=== PATIENT | female | born 1985 | race Caucasian/White ===

== ENCOUNTER 2017-01-26 23:47 | Inpatient (IN) | payer BC, OTHER ==
[2017-01-27] MEDS ORDERED: Sodium Chloride 0.9% 10 ML Syringe FLUSH PRN (00:44)
[2017-01-27] MEDS ORDERED: fentaNYL 100 MCG/2 ML SDV ONE (00:57)
[2017-01-27] MEDS ORDERED: ePHEDrine 50 MG/ML SDV IVPUSH PRN (01:20)
[2017-01-27] MEDS ORDERED: diphenhydrAMINE 50 MG/ML SDV IVPUSH PRN (01:20)
[2017-01-27] MEDS ORDERED: Ondansetron 4 MG/2 ML SDV IVPUSH PRN (01:20)
[2017-01-27] MEDS ORDERED: fentaNYL 100 MCG/2 ML SDV EPIDUR PRN (01:20)
[2017-01-27] MEDS: Lactated Ringers 1,000 ML IV SCH ×4 (02:00→12:20)
[2017-01-27] MEDS: Bupivacaine/fentaNYL/NS 100 ML Bag EPIDUR SCH ×3 (02:00→17:38)
--- NOTE | 2017-01-27 02:11 | PCM.PREANE ---
Preanesthetic Assessment - Anesthesia/Transfusion/Family Hx Anesthesia History: Prior Anesthesia Without Reaction Family History of Anesthesia Reaction: No Transfusion History: No Prior Transfusion(s) - Review of Systems General: No Symptoms Pulmonary: No Symptoms Cardiovascular: No Symptoms Gastrointestinal: Other (Heart burn with ) Neurological: No Symptoms Other: Reports: None - Physical Assessment Pulse: 96 O2 Sat by Pulse Oximetry: 99 Respiratory Rate: 20 Blood Pressure: 119/75 Temperature: 36.8 C Vital Signs: Last Vital Signs Temp Pulse Resp BP 119/75 01/27/17 00:26 Pulse Ox Height: 1.57 m Weight: 73.573 kg ASA Class: 2 Mental Status: Alert & Oriented x3 Airway Class: Mallampati = 2 Dentition: Reports: Normal Dentition Thyro-Mental Finger Breadths: 3 Mouth Opening Finger Breadths: 3 ROM/Head Extension: Full Lungs: Clear to Auscultation, Normal Respiratory Effort Cardiovascular: Regular Rate, Regular Rhythm - Lab Values: Laboratory Last Values WBC 19.01 K/mm3 (3.98-10.04) H 01/27/17 00:22 RBC 4.02 M/mm3 (3.98-5.22) 01/27/17 00:22 Hgb 12.0 gm/L (11.2-15.7) 01/27/17 00:22 Hct 36.0 % (34.1-44.9) 01/27/17 00:22 MCV 89.6 fl (79.4-94.8) 01/27/17 00:22 MCH 29.9 pg (25.6-32.2) 01/27/17 00:22 MCHC 33.3 g/dl (32.2-35.5) 01/27/17 00:22 RDW Std Deviation 44.2 fL (36.4-46.3) 01/27/17 00:22 Plt Count 187 K/mm3 (182-369) 01/27/17 00:22 MPV 10.6 fl (9.4-12.3) 01/27/17 00:22 Neut % (Auto) 80.0 % (34.0-71.1) H 01/27/17 00:22 Lymph % (Auto) 11.7 % (19.3-51.7) L 01/27/17 00:22 [place] % (Auto) 7.3 % (4.7-12.5) 01/27/17 00:22 Eos % (Auto) 0.3 (0.7-5.8) L 01/27/17 00:22 Baso % (Auto) 0.2 % (0.1-1.2) 01/27/17 00:22 Neut # (Auto) 15.22 K/mm3 (1.56-6.13) H 01/27/17 00:22 Lymph # (Auto) 2.22 K/mm3 (1.18-3.74) 01/27/17 00:22 [place] # (Auto) 1.38 K/mm3 (0.24-0.36) H 01/27/17 00:22 Eos # (Auto) 0.06 K/mm3 (0.04-0.36) 01/27/17 00:22 Baso # (Auto) 0.03 K/mm3 (0.01-0.08) 01/27/17 00:22 - Allergies Allergies/Adverse Reactions: Allergies Allergy/AdvReac Type Severity Reaction Status Date / Time Penicillins Allergy Hives Verified 01/27/17 00:40 - Acknowledgements Anesthesia Type Planned: Epidural Pt an Appropriate Candidate for the Planned Anesthesia: Yes Alternatives and Risks of Anesthesia Discussed w Pt/Guardian: Yes Pt/Guardian Understands and Agrees with Anesthesia Plan: Yes PreAnesthesia Questionnaire [employer] History: Reports: Other (See Below) Other OB/BYN History: Previously on infertility medications. Current not from infertility meds - Past Surgical History HEENT Surgical History: Reports: Other (See Below) Other HEENT Surgeries/Procedures: [place] teeth removed - SUBSTANCE USE Smoking Status *Q: Never Smoker Tobacco Use Within Last Twelve Months: No Recreational Drug Use History: No - HOME MEDS Home Medications: Home Meds PNV95/Ferrous Fumarate/FA [ Tablet] 1 each PO DAILY 01/27/17 [History] - CURRENT (IN HOUSE) MEDS Current Meds: Current Medications Diphenhydramine HCl (Benadryl) 25 mg IVPUSH Q6H PRN PRN Reason: Pruritis Ephedrine Sulfate (Ephedrine Sulfate) 5 mg IVPUSH ASDIRECTED PRN PRN Reason: Hypotension Fentanyl (Sublimaze) 100 mcg EPIDUR ONETIME PRN PRN Reason: Pain Last Admin: 01/27/17 02:01 Dose: 100 mcg Fentanyl/Bupivacaine HCl (Fentanyl/Bupivacaine/Ns 2 Mcg-0.125% 100 Ml) 100 ml EPIDUR ASDIRECTED [facility] Last Admin: 01/27/17 02:00 Dose: 100 ml Lactated Ringer's (Ringers, Lactated) 1,000 mls @ 100 mls/hr IV ASDIRECTED [facility] Last Admin: 01/27/17 02:00 Dose: 100 mls/hr Ondansetron HCl (Zofran) 4 mg IVPUSH ONETIME PRN PRN Reason: Nausea/Vomiting Sodium Chloride (Saline Flush) 10 ml FLUSH ASDIRECTED PRN PRN Reason: Keep Vein Open Discontinued Medications Fentanyl (Sublimaze) Confirm Administered Dose 100 mcg .ROUTE .[facility] ONE Stop: 01/27/17 00:58 Last Admin: 01/27/17 02:02 Dose: Not Given
[2017-01-27] MEDS ORDERED: Diphtheria,Pertussis(Acell),Tetanus Vaccine 0.5 ML SDV IM ONE (03:45)
[2017-01-27] MEDS ORDERED: Bupivacaine 0.25% 10 ML SDV ONE (06:00)
[2017-01-27] MEDS ORDERED: Oxytocin/Lactated Ringers 10 UNIT/1,000 ML BAG IV SCH (12:15)
--- NOTE | 2017-01-27 18:29 | PCM.LDHP ---
L&D History of Present Illness - General Date of Service: 01/27/17 Admit Problem/Dx: Patient Status Order with Admit Dx/Problem 01/27/17 00:45 Patient Status [ADT] Routine Admission Diagnosis/Problem Admission Diagnosis/Problem Normal labor Source of Information: Patient History Limitations: Reports: No Limitations - History of Present Illness Introduction:: 31 year old at 39w6d by LMP and 8 week ultrasound presents with painful uterine contractions. Cervix 1.5 earlier in the day in clinic now 4 cm/100/-3. PNC with myself without complications. Pain Score: 10 - Related Data Allergies/Adverse Reactions: Allergies Allergy/AdvReac Type Severity Reaction Status Date / Time Penicillins Allergy Hives Verified 01/27/17 00:40 Home Medications: Home Meds PNV95/Ferrous Fumarate/FA [ Tablet] 1 each PO DAILY 01/27/17 [History] Past Medical History [employer] History: Reports: Other (See Below) Other OB/BYN History: Previously on infertility medications. Current not from infertility meds - Past Surgical History HEENT Surgical History: Reports: Other (See Below) Other HEENT Surgeries/Procedures: [place] teeth removed Social & Family History - Family History Family Medical History: Noncontributory - Tobacco Use Smoking Status *Q: Never Smoker - Recreational Drug Use Recreational Drug Use: No H&P Review of Systems - Review of Systems: Review Of Systems: See Below General: Reports: No Symptoms HEENT: Reports: No Symptoms Pulmonary: Reports: No Symptoms Cardiovascular: Reports: No Symptoms Gastrointestinal: Reports: No Symptoms Genitourinary: Reports: No Symptoms Musculoskeletal: Reports: No Symptoms Skin: Reports: No Symptoms Psychiatric: Reports: No Symptoms Neurological: Reports: No Symptoms Hematologic/Lymphatic: Reports: No Symptoms Immunologic: Reports: No Symptoms L&D Exam - Exam Exam: See Below - Vital Signs Vital Signs: Last Vital Signs Temp 36.8 C 01/27/17 02:11 Pulse 96 01/27/17 02:11 Resp 20 01/27/17 02:11 BP 119/75 01/27/17 02:11 Pulse Ox 99 01/27/17 02:11 Weight: 73.573 kg - OB Specific Contraction Intensity: Strong Movement: Active Heart Rate (FHR) Variability: Moderate (6-25 bmp) Presentation: Vertex Estimated Weight: 3400 - Low Score Low Score Cervix Position: Midposition Low Score Consistency: Soft Low Score Effacement: >80% Low Score Dilation: 3-4 cm Low Score Infant's Station: -2 Low Score Total: 9 - Exam General: Alert, Oriented HEENT: PERRLA, Conjunctiva Clear, EACs Clear, EOMI, Hearing Intact, Mucosa Moist & [place], Nares Patent, Normal Nasal Septum, Posterior Pharynx Clear, TMs Clear Neck: Supple, Trachea Midline Lungs: Clear to Auscultation, Normal Respiratory Effort Cardiovascular: Regular Rate, Regular Rhythm GI/Abdominal Exam: Normal Bowel Sounds, Soft, Non-Tender, No Organomegaly, No Distention, No Abnormal Bruit, No Mass, Pelvis Stable Genitourinary: Normal external exam, Normal bimanual exam, Normal speculum exam Back Exam: Normal Inspection, Full Range of Motion Extremities: Normal Inspection, Normal Range of Motion, Non-Tender, No Pedal Edema, Normal Capillary Refill Skin: Warm, Dry, Intact Neurological: Cranial Nerves Intact, Reflexes Equal Bilateral Psychiatric: Alert, Normal Affect, Normal Mood - Patient Data Lab Results Last 24 hrs: Laboratory Results - last 24 hr 01/27/17 Range/Units 00:22 WBC 19.01 H (3.98-10.04) K/mm3 RBC 4.02 (3.98-5.22) M/mm3 Hgb 12.0 (11.2-15.7) gm/L Hct 36.0 (34.1-44.9) % MCV 89.6 (79.4-94.8) fl MCH 29.9 (25.6-32.2) pg MCHC 33.3 (32.2-35.5) g/dl RDW Std Deviation 44.2 (36.4-46.3) fL Plt Count 187 (182-369) K/mm3 MPV 10.6 (9.4-12.3) fl Neut % (Auto) 80.0 H (34.0-71.1) % Lymph % (Auto) 11.7 L (19.3-51.7) % [place] % (Auto) 7.3 (4.7-12.5) % Eos % (Auto) 0.3 L (0.7-5.8) Baso % (Auto) 0.2 (0.1-1.2) % Neut # (Auto) 15.22 H (1.56-6.13) K/mm3 Lymph # (Auto) 2.22 (1.18-3.74) K/mm3 [place] # (Auto) 1.38 H (0.24-0.36) K/mm3 Eos # (Auto) 0.06 (0.04-0.36) K/mm3 Baso # (Auto) 0.03 (0.01-0.08) K/mm3 Result Diagrams: 01/27/17 00:22 Problem List Initiated/Reviewed/Updated: Yes Orders Last 24hrs: Active Orders 24 hr Category Date Time Status Patient Status [ADT] Routine ADT 01/27/17 00:45 Active Activity as Tolerated [RC] PFP Care 01/27/17 00:44 Active Communication Order [RC] ASDIRECTED Care 01/27/17 00:44 Active Heart Tones [RC] ASDIRECTED Care 01/27/17 00:45 Active Notify Provider [RC] ASDIRECTED Care 01/27/17 01:20 Active Notify Provider [RC] PFP Care 01/27/17 00:44 Active Notify Provider [RC] PRN Care 01/27/17 00:44 Active Peripheral IV Care [RC] . DIRECTED Care 01/27/17 00:45 Active Vaccines to be Administered [RC] PER UNIT ROUTINE Care 01/27/17 03:45 Active Vital Signs [RC] PER UNIT ROUTINE Care 01/27/17 00:44 Active Regular Diet [DIET] Diet 01/27/17 Breakfast Active Bupivacaine/fentaNYL/NS [fentaNYL/Bupivacaine/NS 2 MCG- Med 01/27/17 01:30 Active 0.125% 100 ML] 100 ml EPIDUR ASDIRECTED Lactated Ringers [Ringers, Lactated] 1,000 ml Med 01/27/17 00:45 Active IV ASDIRECTED Ondansetron [Zofran] Med 01/27/17 01:20 Active 4 mg IVPUSH ONETIME PRN Oxytocin/Lactated Ringers [Pitocin in LR 10 Units/1,000 Med 01/27/17 12:15 Active ML] 10 unit in 1,000 ml IV TITRATE Sodium Chloride 0.9% [Saline Flush] Med 01/27/17 00:44 Active 10 ml FLUSH ASDIRECTED PRN diphenhydrAMINE [Benadryl] Med 01/27/17 01:20 Active 25 mg IVPUSH Q6H PRN ePHEDrine [ePHEDrine Sulfate] Med 01/27/17 01:20 Active 5 mg IVPUSH ASDIRECTED PRN fentaNYL [Sublimaze] Med 01/27/17 01:20 Active 100 mcg EPIDUR ONETIME PRN Electronic Heart Tones Ext w TOCO [WOMSER] Oth 01/27/17 00:44 Ordered Routine Electronic Heart Tones Internal [WOMSER] Per Unit Oth 01/27/17 00:44 Ordered Routine Peripheral IV Insertion Adult [OM.PC] Routine Oth 01/27/17 00:44 Ordered Resuscitation Status Routine Resus Stat 01/27/17 00:44 Ordered Medication Orders Diphenhydramine HCl (Benadryl) 25 mg IVPUSH Q6H PRN PRN Reason: Pruritis Ephedrine Sulfate (Ephedrine Sulfate) 5 mg IVPUSH ASDIRECTED PRN PRN Reason: Hypotension Fentanyl (Sublimaze) 100 mcg EPIDUR ONETIME PRN PRN Reason: Pain Last Admin: 01/27/17 02:01 Dose: 100 mcg Fentanyl/Bupivacaine HCl (Fentanyl/Bupivacaine/Ns 2 Mcg-0.125% 100 Ml) 100 ml EPIDUR ASDIRECTED [facility] Last Admin: 01/27/17 17:38 Dose: 100 ml Admin: 01/27/17 10:14 Dose: 100 ml Admin: 01/27/17 02:00 Dose: 100 ml Lactated Ringer's (Ringers, Lactated) 1,000 mls @ 100 mls/hr IV ASDIRECTED [facility] Last Admin: 01/27/17 12:20 Dose: 125 mls/hr Infusion: 01/27/17 07:25 Dose: 250 mls/hr Admin: 01/27/17 03:25 Dose: 250 mls/hr Infusion: 01/27/17 03:25 Dose: 999 mls/hr Admin: 01/27/17 03:22 Dose: 250 mls/hr Infusion: 01/27/17 03:22 Dose: 999 mls/hr Admin: 01/27/17 02:00 Dose: 100 mls/hr Oxytocin/Lactated Ringer's (Pitocin In Lr 10 Units/1,000 Ml) 10 unit in 1,000 mls @ 12 mls/hr IV TITRATE [facility]WN; 2 MUNITS/MIN PRN Reason: Protocol Last Titration: 01/27/17 14:50 Dose: 4 munits/min, 24 mls/hr Admin: 01/27/17 12:20 Dose: 2 munits/min, 12 mls/hr Ondansetron HCl (Zofran) 4 mg IVPUSH ONETIME PRN PRN Reason: Nausea/Vomiting Sodium Chloride (Saline Flush) 10 ml FLUSH ASDIRECTED PRN PRN Reason: Keep Vein Open Assessment/Plan Comment:: Term labor. Augment as needed. Anticipate .
--- NOTE | 2017-01-27 18:30 | PCM.SN ---
- Free Text/Narrative Note: Progressing well. Comfortable with epidural. 5 cm. Augment with pitocin. Reassuring monitoring
--- NOTE | 2017-01-27 18:31 | PCM.SN ---
- Free Text/Narrative Note: Term labor. Progressing adequately. 7 cm. No complaints. Slightly more pressure.
--- NOTE | 2017-01-27 20:04 | PCM.DEL ---
L & D Note - General Info Date of Service: 01/27/17 - Delivery Note Labor: Augmented by ARM, Augmented by Oxytocin Delivery Outcome: Livebirth Infant Delivery Method: Spontaneous Vaginal Delivery-Single Delivery Mode: Vacuum Extraction Presentation: Vertex Nuchal Cord: None Anesthesia Type: Epidural Amniotic Fluid Description: Clear Episiotomy Type: None Laceration: 1st Degree, Sulcus Suture size: 3-0 Placenta: Intact, Spontaneous Cord: 3 Vessels Resuscitation Needed: Yes Score 1 min: 8 Score 5 min: 9 Delivery Comments (Free Text/Narrative):: Verbal consent obtained for VAVD. Patient and spouse express understanding of risks. Over 4 contractions with good maternal effort kiwi vacuum was used to facilitate descent of head. Then with maternal effort head delivered and body and shoulders followed without difficulty. - Patient Data Vitals - Most Recent: Last Vital Signs Temp 36.8 C 01/27/17 02:11 Pulse 96 01/27/17 02:11 Resp 20 01/27/17 02:11 BP 119/75 01/27/17 02:11 Pulse Ox 99 01/27/17 02:11 Weight - Most Recent: 73.573 kg I&O - Last 24 Hours: Intake & Output 01/27/17 01/27/17 01/27/17 06:59 14:59 22:59 Intake Total 3000 Balance 3000 Lab Results Last 24 Hours: Laboratory Results - last 24 hr 01/27/17 Range/Units 00:22 WBC 19.01 H (3.98-10.04) K/mm3 RBC 4.02 (3.98-5.22) M/mm3 Hgb 12.0 (11.2-15.7) gm/L Hct 36.0 (34.1-44.9) % MCV 89.6 (79.4-94.8) fl MCH 29.9 (25.6-32.2) pg MCHC 33.3 (32.2-35.5) g/dl RDW Std Deviation 44.2 (36.4-46.3) fL Plt Count 187 (182-369) K/mm3 MPV 10.6 (9.4-12.3) fl Neut % (Auto) 80.0 H (34.0-71.1) % Lymph % (Auto) 11.7 L (19.3-51.7) % [place] % (Auto) 7.3 (4.7-12.5) % Eos % (Auto) 0.3 L (0.7-5.8) Baso % (Auto) 0.2 (0.1-1.2) % Neut # (Auto) 15.22 H (1.56-6.13) K/mm3 Lymph # (Auto) 2.22 (1.18-3.74) K/mm3 [place] # (Auto) 1.38 H (0.24-0.36) K/mm3 Eos # (Auto) 0.06 (0.04-0.36) K/mm3 Baso # (Auto) 0.03 (0.01-0.08) K/mm3 Med Orders - Current: Current Medications Diphenhydramine HCl (Benadryl) 25 mg IVPUSH Q6H PRN PRN Reason: Pruritis Ephedrine Sulfate (Ephedrine Sulfate) 5 mg IVPUSH ASDIRECTED PRN PRN Reason: Hypotension Fentanyl (Sublimaze) 100 mcg EPIDUR ONETIME PRN PRN Reason: Pain Last Admin: 01/27/17 02:01 Dose: 100 mcg Fentanyl/Bupivacaine HCl (Fentanyl/Bupivacaine/Ns 2 Mcg-0.125% 100 Ml) 100 ml EPIDUR ASDIRECTED [facility] Last Admin: 01/27/17 17:38 Dose: 100 ml Lactated Ringer's (Ringers, Lactated) 1,000 mls @ 100 mls/hr IV ASDIRECTED [facility] Last Admin: 01/27/17 12:20 Dose: 125 mls/hr Oxytocin/Lactated Ringer's (Pitocin In Lr 10 Units/1,000 Ml) 10 unit in 1,000 mls @ 12 mls/hr IV TITRATE TYSHAWN; 2 MUNITS/MIN PRN Reason: Protocol Last Titration: 01/27/17 14:50 Dose: 4 munits/min, 24 mls/hr Ondansetron HCl (Zofran) 4 mg IVPUSH ONETIME PRN PRN Reason: Nausea/Vomiting Sodium Chloride (Saline Flush) 10 ml FLUSH ASDIRECTED PRN PRN Reason: Keep Vein Open Discontinued Medications Diphtheria/Tetanus/Acell Pertussis (Adacel) 0.5 ml IM .ONCE ONE Stop: 01/27/17 03:46 Fentanyl (Sublimaze) Confirm Administered Dose 100 mcg .ROUTE .[facility] ONE Stop: 01/27/17 00:58 Last Admin: 01/27/17 02:02 Dose: Not Given - Problem List Review Problem List Initiated/Reviewed/Updated: Yes - My Orders Last 24 Hours: My Active Orders 01/27/17 00:44 Activity as Tolerated [RC] PFP Communication Order [RC] ASDIRECTED Notify Provider [RC] PFP Notify Provider [RC] PRN Vital Signs [RC] PER UNIT ROUTINE Sodium Chloride 0.9% [Saline Flush] 10 ml FLUSH ASDIRECTED PRN Electronic Heart Tones Ext w TOCO [WOMSER] Routine Electronic Heart Tones Internal [WOMSER] Per Unit Routine Peripheral IV Insertion Adult [OM.PC] Routine Resuscitation Status Routine 01/27/17 00:45 Patient Status [ADT] Routine Heart Tones [RC] ASDIRECTED Peripheral IV Care [RC] . DIRECTED Lactated Ringers [Ringers, Lactated] 1,000 ml IV ASDIRECTED 01/27/17 03:45 Vaccines to be Administered [RC] PER UNIT ROUTINE 01/27/17 12:15 Oxytocin/Lactated Ringers [Pitocin in LR 10 Units/1,000 ML] 10 unit in 1,000 ml IV TITRATE 01/27/17 Breakfast Regular Diet [DIET] - Plan Plan:: Term labor. Augment as needed. Anticipate .
[2017-01-27] MEDS ORDERED: Docusate Sodium 100 MG Cap PO PRN (20:49)
[2017-01-27] MEDS ORDERED: Benzocaine/Menthol 20%-0.5% Spray 56 GM Canister TOP PRN (20:49)
[2017-01-27] MEDS ORDERED: Witch Hazel Medicated Pads 100/Jar TOP PRN (20:49)
[2017-01-27] MEDS ORDERED: Lanolin 100% Cream 7 GM Tube TOP PRN (20:49)
[2017-01-28] MEDS: Ibuprofen 600 MG Tab PO PRN ×3 (03:31→17:26)
--- NOTE | 2017-01-28 10:56 | PCM.SN ---
- Free Text/Narrative Note: Post Progress Note PPD # 1 Subjective: Doing well overall. Ambulating without difficulty. Lochia minimal. Voiding without difficulty. Tolerating regular diet. Pain moderate in amount but able to be controlled with oral medications. Bottle feeding with minimal difficulty. Objective: Vitals: Vital Signs - 24 hr 01/27/17 01/28/17 23:44 05:00 Temperature [ 36.8 C Axillary] Pulse, 100 Peripheral Respiratory 16 Rate Blood Pressure 109/59 L O2 Sat by Pulse 94 L Oximetry Physical Exam General: Alert and oriented, no acute distress Lungs: Clear to auscultation bilaterally Heart: Regular rate and rhythm Abdomen: Soft, minimal appropriate tenderness, non-distended, fundus midline, nontender, and below the umbilicus Extremities: No edema ASSESSMENT: 31-year-old female G 1 P 1001 s/p vacuum-assisted vaginal delivery PPD #1 PLAN: Doing well Bottle feeding with minimal difficulty. Assist as needed Lochia minimal. Continue to monitor for appropriate lochia. Patient voiding without difficulty at this time. Does not have sensation of urinary retention. Continue to monitor closely to ensure patient does not have urinary retention. Continue routine care Anticipate discharge home tomorrow Rico Suarez MD 10:57 AM 01/28/17
[2017-01-28] MEDS ORDERED: Acetaminophen 325 MG Tab PO PRN (11:24)
[2017-01-29] MEDS: Ibuprofen 600 MG Tab PO PRN (00:30)
--- NOTE | 2017-01-29 09:04 | PCM.DCSUM1 ---
Discharge Summary - Hospital Course Free Text/Narrative:: Labor: Augmented by ARM, Augmented by Oxytocin Delivery Outcome: Livebirth Infant Delivery Method: Spontaneous Vaginal Delivery-Single Delivery Mode: Vacuum Extraction Presentation: Vertex Nuchal Cord: None Anesthesia Type: Epidural Amniotic Fluid Description: Clear Episiotomy Type: None Laceration: 1st Degree, Sulcus Suture size: 3-0 Placenta: Intact, Spontaneous Cord: 3 Vessels Resuscitation Needed: Yes Score 1 min: 8 Score 5 min: 9 Delivery Comments (Free Text/Narrative):: Verbal consent obtained for VAVD. Patient and spouse express understanding of risks. Over 4 contractions with good maternal effort kiwi vacuum was used to facilitate descent of head. Then with maternal effort head delivered and body and shoulders followed without difficulty. HPI Initial Comments: Labor: Augmented by ARM, Augmented by Oxytocin Delivery Outcome: Livebirth Delivery Method: Spontaneous Vaginal Delivery-Single Delivery Mode: Vacuum Extraction Presentation: Vertex Nuchal Cord: None Anesthesia Type: Epidural Amniotic Fluid Description: Clear Episiotomy Type: None Laceration: 1st Degree, Sulcus Suture size: 3-0 Placenta: Intact, Spontaneous Cord: 3 Vessels Resuscitation Needed: Yes Score 1 min: 8 Score 5 min: 9 Delivery Comments (Free Text/Narrative):: Verbal consent obtained for VAVD. Patient and spouse express understanding of risks. Over 4 contractions with good maternal effort kiwi vacuum was used to facilitate descent of head. Then with maternal effort head delivered and body and shoulders followed without difficulty. Brief History: Labor: Augmented by ARM, Augmented by Oxytocin. Delivery Outcome : Livebirth. Delivery Method: Spontaneous Vaginal Delivery-Single. Delivery Mode: Vacuum Extraction. Presentation: Vertex. Nuchal Cord: None. Anesthesia Type: Epidural. Amniotic Fluid Description: Clear. Episiotomy Type: None. Laceration: 1st Degree, Sulcus. Suture size: 3-0. Placenta: Intact, Spontaneous. Cord: 3 Vessels. Resuscitation Needed: Yes. Score 1 min: 8. Score 5 min: 9. Delivery Comments (Free Text/ Narrative):: Verbal consent obtained for VAVD. Patient and spouse express understanding of risks. Over 4 contractions with good maternal effort kiwi vacuum was used to facilitate descent of head. Then with maternal effort head delivered and body and shoulders followed without difficulty. - Discharge Data Discharge Date: 01/29/17 Discharge Disposition: Home, Self-Care 01 Condition: Good - Discharge Diagnosis/Problem(s) (1) 39 weeks gestation of SNOMED Code(s): 76592364 ICD Code: Z3A.39 - 39 WEEKS GESTATION OF Status: Acute Current Visit: Yes (2) Status post vacuum-assisted vaginal delivery SNOMED Code(s): 512667815 ICD Code: Z87.42 - PERSONAL HISTORY OF OTH DISEASES OF THE FEMALE GENITAL TRACT Status: Acute Current Visit: Yes (3) Second degree laceration of perineum, delivered, current hospitalization SNOMED Code(s): 567814255 ICD Code: O70.1 - SECOND DEGREE PERINEAL LACERATION DURING DELIVERY Status : Acute Current Visit: Yes - Patient Summary/Data Operative Procedure(s) Performed: Vacuum assisted vaginal delivery and repair of second degree perineal laceration Complications: None Consults: None Hospital Course: Ashly was admitted for active labor and was found to be 4 cm on admission. She was GBS negative. She was allowed to contract on her own to see if she would have cervical change. She progressed to 5 cm. She had augmentation of labor with Pitocin. She is given an epidural for anesthesia. She progressed to complete and pushing. On 01/27/2017 she had a vacuum-assisted vaginal delivery with a second-degree perineal laceration. The second-degree laceration was repaired. Please see delivery note for full details. She was doing well on day #1. Her pain was moderate in amount but able to be controlled with oral medications. She was ambulating without difficulty. She was voiding without any difficulty and did not have any signs or symptoms of urinary retention. She was bottlefeeding without difficulty. On post day #2 she continued to meet all milestones. She was ambulating without difficulty. She continued to void without difficulty. Her pain was decreased and only with change of position. Pain was able to be controlled with oral medications. She is bottle feeding without difficulty. She desired to be discharged home in the morning of day #2. She'll follow up with Dr. Preston in the clinic in 6 weeks or earlier as needed. - Patient Instructions Diet: Regular Diet as Tolerated Activity: As Tolerated Activity, Other: Nothing in the vagina for 6 weeks Driving: May Drive Today Showering/Bathing: May Shower, No Tub Bathing/Swimming (for 6 weeks) Notify Provider of: Fever, Increased Pain, Swelling and Redness, Drainage, Nausea and/or Vomiting - Discharge Plan Home Medications: Home Meds PNV95/Ferrous Fumarate/FA [ Tablet] 1 each PO DAILY 01/27/17 [History] Acetaminophen [Tylenol] 650 mg PO Q6H PRN tablet 01/28/17 [Rx] Docusate Sodium [Colace] 100 mg PO BID PRN cap 01/28/17 [Rx] Ibuprofen [IJD: Ibuprofen] 600 mg PO Q6H PRN tablet 01/28/17 [Rx] Lanolin [Lansinoh HPA] 1 applic TOP ASDIRECTED PRN tube 01/28/17 [Rx] Witch Winter [Tucks] 1 pad TOP ASDIRECTED PRN pad 01/28/17 [Rx] Patient Handouts: How to Take a Sitz Bath, Home Care Instructions for Mom, Vaginal Delivery, Care After, Pelvic Rest, Care of a Perineal Tear, Care After Vaginal Delivery Referrals: Yesenia Preston MD [Primary Care Provider] - (Follow up in 6 weeks or earlier as needed for care.) - Discharge Summary/Plan Comment DC Time >30 min.: No - Patient Data Vitals - Most Recent: Last Vital Signs Temp 36.7 C 01/29/17 04:00 Pulse 67 01/29/17 04:17 Resp 16 01/29/17 04:17 BP 95/63 01/29/17 04:17 Pulse Ox 95 01/29/17 04:17 Weight - Most Recent: 73.573 kg I&O - Last 24 hours: Intake & Output 01/28/17 01/29/17 01/29/17 22:59 06:59 14:59 Intake Total 60 Balance 60 Med Orders - Current: Current Medications Acetaminophen (Tylenol) 650 mg PO Q6H PRN PRN Reason: Pain (moderate 4-6) Benzocaine/Menthol (Dermoplast Pain Relief [place]) 0 gm TOP ASDIRECTED PRN PRN Reason: Perineal Comfort Measure Last Admin: 01/27/17 22:10 Dose: 1 canister Docusate Sodium (Colace) 100 mg PO BID PRN PRN Reason: Constipation Emollient Ointment (Lansinoh Hpa) 0 gm TOP ASDIRECTED PRN PRN Reason: Sore Nipples Ibuprofen (Motrin) 600 mg PO Q6H PRN PRN Reason: Mild pain or fever Last Admin: 01/29/17 00:30 Dose: 600 mg Witch Winter (Tucks) 1 pad TOP ASDIRECTED PRN PRN Reason: Hemorrhoid pain Last Admin: 01/27/17 22:09 Dose: 1 canister Discontinued Medications Diphenhydramine HCl (Benadryl) 25 mg IVPUSH Q6H PRN PRN Reason: Pruritis Diphtheria/Tetanus/Acell Pertussis (Adacel) 0.5 ml IM .ONCE ONE Stop: 01/27/17 03:46 Ephedrine Sulfate (Ephedrine Sulfate) 5 mg IVPUSH ASDIRECTED PRN PRN Reason: Hypotension Fentanyl (Sublimaze) Confirm Administered Dose 100 mcg .ROUTE .STK-MED ONE Stop: 01/27/17 00:58 Last Admin: 01/27/17 02:02 Dose: Not Given Fentanyl (Sublimaze) 100 mcg EPIDUR ONETIME PRN PRN Reason: Pain Last Admin: 01/27/17 02:01 Dose: 100 mcg Fentanyl/Bupivacaine HCl (Fentanyl/Bupivacaine/Ns 2 Mcg-0.125% 100 Ml) 100 ml EPIDUR ASDIRECTED TYSHAWN Last Admin: 01/27/17 17:38 Dose: 100 ml Lactated Ringer's (Ringers, Lactated) 1,000 mls @ 100 mls/hr IV ASDIRECTED TYSHAWN Last Admin: 01/27/17 12:20 Dose: 125 mls/hr Oxytocin/Lactated Ringer's (Pitocin In Lr 10 Units/1,000 Ml) 10 unit in 1,000 mls @ 12 mls/hr IV TITRATE TYSHAWN; 2 MUNITS/MIN PRN Reason: Protocol Last Titration: 01/27/17 14:50 Dose: 4 munits/min, 24 mls/hr Ondansetron HCl (Zofran) 4 mg IVPUSH ONETIME PRN PRN Reason: Nausea/Vomiting Sodium Chloride (Saline Flush) 10 ml FLUSH ASDIRECTED PRN PRN Reason: Keep Vein Open *Q Meaningful Use (DIS) - VTE *Q VTE Criteria *Q: - Stroke *Q Stroke Criteria *Q: - AMI *Q AMI Criteria *Q:
--- NOTE | 2017-01-29 09:04 | PCM.SN ---
- Free Text/Narrative Note: Post Progress Note PPD # 2 Subjective: Doing well overall. Ambulating without difficulty. Lochia minimal. Voiding without difficulty. Tolerating regular diet. Pain moderate in amount with standing or sitting but able to be controlled with oral medications. Rates pain at 8/10 with standing or sitting. Reports that she is having some mild bilateral lower pelvic cramping. Pain able to be controlled with Motrin. Bottle feeding with minimal difficulty. Objective: Vitals: Vital Signs - 24 hr 01/28/17 01/28/17 01/28/17 12:58 20:00 20:35 Temperature 36.3 C Temperature [ 36.6 C Axillary] Pulse, 101 H 73 Peripheral Respiratory 18 18 Rate Blood Pressure 108/72 99/67 O2 Sat by Pulse 97 99 Oximetry 01/29/17 01/29/17 04:00 04:17 Temperature Temperature [ 36.7 C Axillary] Pulse, 67 Peripheral Respiratory 16 Rate Blood Pressure 95/63 O2 Sat by Pulse 95 Oximetry Physical Exam General: Alert and oriented, no acute distress Lungs: Clear to auscultation bilaterally Heart: Regular rate and rhythm Abdomen: Soft, minimal appropriate tenderness, non-distended, fundus midline, nontender, and below the umbilicus Extremities: Trace edema in lower extremities bilaterally to lower shins ASSESSMENT: 31-year-old female G 1 P 1001 s/p vacuum-assisted vaginal delivery PPD #2 PLAN: Doing well Bottle feeding with minimal difficulty. Assist as needed Lochia minimal. Continue to monitor for appropriate lochia. Patient voiding without difficulty at this time. Continue routine care Anticipate discharge home today Rico Suarez MD 9:01 AM 01/29/17
--- NOTE | 2017-01-30 08:18 | PCM48HPAN ---
Post Anesthesia Note - EVALUATION WITHIN 48HRS OF ANESTHETIC Vital Signs in Normal Range: Yes Patient Participated in Evaluation: Yes Respiratory Function Stable: Yes Airway Patent: Yes Cardiovascular Function Stable: Yes Hydration Status Stable: Yes Pain Control Satisfactory: Yes Nausea and Vomiting Control Satisfactory: Yes Mental Status Recovered: Yes
== END 2017-01-29 10:05 | disposition home or self-care (01) | DRG 560 ==
LOC: JD.OBCHECK 23:47 → JD.OB 01-27 00:12 → JD.OBCHECK 01-27 00:49 → JD.OB 01-27 00:50 → OBSVTOIN 01-27 19:33 → JD.OB 01-27 19:33
PROVIDERS: ADMIT Obstetrics & Gynecology; ATTEND Obstetrics & Gynecology
PROC: 10D07Z6 Extraction of Products of Conception, Vacuum, Via Natural or Artificial Opening (ICD-10-PCS; principal; 2017-01-27)
PROC: 10907ZC Drainage of Amniotic Fluid, Therapeutic from Products of Conception, Via Natural or Artificial Opening (ICD-10-PCS; 2017-01-27)
PROC: 0HQ9XZZ Repair Perineum Skin, External Approach (ICD-10-PCS; 2017-01-27)
PROC: 00HU33Z Insertion of Infusion Device into Spinal Canal, Percutaneous Approach (ICD-10-PCS; 2017-01-27)
PROC: 3E0R3BZ Introduction of Anesthetic Agent into Spinal Canal, Percutaneous Approach (ICD-10-PCS; 2017-01-27)
DX: O70.0 First degree perineal laceration during delivery (principal); Z3A.40 40 weeks gestation of pregnancy; Z37.0 Single live birth; Z88.0 Allergy status to penicillin
CPT/HCPCS: 36415; 51702; 59300; 59409; 85025; A9270-GY; J2590; J3010; J7120